=== PATIENT | female | born 1955 | race Caucasian/White ===

== ENCOUNTER 2017-10-17 16:14 | Emergency (ER) | payer OTHER ==
[~2017-10-17] VITALS: Ht 170.2 cm; Wt 68.0 kg
[2017-10-17 16:40] VITALS: BP_SYST 102
[2017-10-17] MEDS ORDERED: KETOROLAC TROMETHAMINE 60 MG/2 ML VIAL IM ONE (18:30)
[2017-10-17 20:50] VITALS: BP_SYST 102
== END 2017-10-17 20:50 | disposition home or self-care (01) ==
LOC: SED 16:14
DX: M25.551 Pain in right hip (principal); M25.561 Pain in right knee; E78.00 Pure hypercholesterolemia, unspecified; Z96.653 Presence of artificial knee joint, bilateral; Z88.1 Allergy status to other antibiotic agents; W01.10XA Fall on same level from slipping, tripping and stumbling with subsequent striking against unspecified object, initial encounter; Y93.01 Activity, walking, marching and hiking; Y92.89 Other specified places as the place of occurrence of the external cause; Y99.8 Other external cause status
CPT/HCPCS: 29505; 72192; 73700; 96372; 99284; J1885

== ENCOUNTER 2018-05-31 00:08 | Emergency (ER) | payer OTHER ==
[~2018-05-31] VITALS: Ht 165.1 cm; Wt 63.5 kg
[2018-05-31 00:08] VITALS: BP_SYST 127
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
--- NOTE | 2018-05-31 00:10 | NUR ---
Alex todd in [facility] - 05/31/18 at 0036 by SDNURSR Patient to bed 7 for evaluation.
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
--- NOTE | 2018-05-31 00:20 | NUR ---
ER at bedside examining patient.
[2018-05-31] MEDS ORDERED: KETOROLAC TROMETHAMINE 60 MG/2 ML VIAL IM ONE (00:30)
--- NOTE | 2018-05-31 00:30 | NUR ---
Patient to radiology for films, ambulating without difficulty with slow, steady gait.
--- NOTE | 2018-05-31 00:35 | NUR ---
Patient returned from radiology in stable condition, able to ambulate without difficulty with slow, steady gait.
[2018-05-31 01:05] VITALS: BP_SYST 120
--- NOTE | 2018-05-31 01:05 | NUR ---
Patient given written and verbal discharge instructions and verbalizes understanding. ER MD discussed with patient the results and treatment provided. Patient in stable condition. ID arm band removed. Rx of Tramadol given. Patient educated on pain management and to follow up with PMD. Pain Scale 2. Opportunity for questions provided and answered. Medication side effect fact sheet provided. Patient left ER in no acute distress, able to ambulate without difficulty with slow, steady gait without difficulty. No adverse reaction noted to medication.
== END 2018-05-31 01:05 | disposition home or self-care (01) ==
LOC: SED 00:08
DX: G89.29 Other chronic pain (principal); M54.5 Low back pain
CPT/HCPCS: 72100; 96372; 99284; J1885